=== PATIENT | female | born 1980 | race Caucasian/White ===

== ENCOUNTER 2019-02-03 09:37 | Emergency (ER) | payer OTHER ==
[~2019-02-03] VITALS: Ht 152.4 cm; Wt 45.4 kg
[~2019-02-03 09:37] MED LIST: SYNTHROID112 MCG
[2019-02-03] MEDS ORDERED: SM VITAMIN B C0.4 MG (10:01)
== END 2019-02-03 13:00 | disposition home or self-care (01) ==
LOC: ER 09:37
DX: N93.8 Other specified abnormal uterine and vaginal bleeding (principal)